=== PATIENT | female | born 1995 | race Two or more races ===

== ENCOUNTER 2025-02-15 22:25 | Emergency (ER) | payer OTHER, SELFPAY ==
[2025-02-15 22:25] VITALS: BMI 22.4
[2025-02-15 22:30] VITALS: BP 132/78; PULSE 75; RESP 18; TEMP 37.6; O2SAT 98
--- NOTE | 2025-02-15 22:39 | PD.EDVAGBL ---
ED OB Contraction Preg RMI/HPI General Chief complaint: OB/Uterine Contractions Stated complaint: problems 9 weeks. vaginal bleed Time Seen by Provider: 02/15/25 22:31 Arrival date/time: 02/15/25 22:25 RME / HPI RME / HPI Narrative: This section includes all my notes and documentations, including HPI, PE, and ED course. Sean Burgess MD HPI: 29-year-old female here with vaginal bleeding with clots since yesterday. She is currently . Based on LMP 12/10/2024, GA today is 9 4/7 weeks. Cramping has resolved. No other complaints. ROS: All negative except as documented in HPI. Physical Exam: General: Alert and oriented. Eyes: Conjunctivae and lids clear. ENT: No nasal congestion. Neck: Supple. Abdomen: Soft with no tenderness. Normal bowel sounds. No distension. No rebound or guarding. Back: No CVA tenderness. Skin: Warm and dry. Neuro: Alert and oriented X 3. I reviewed all diagnostic test results. My review of the OB ultrasound report is no IUP. Blood tests and urine tests unremarkable. At this point, diagnoses include complete miscarriage. Recommended supportive care. Based on my best medical judgment, made decision no further evaluation or treatment indicated at this time. Patient understands and agrees to the discharge instructions customized and printed, see below. Discharge Instructions from Dr. Burgess printed for you: 1. We are extremely sorry but you had a miscarriage. There is nothing in your uterus. 2. See a private doctor on 02/18/2025 for recheck and further care. Ask to review all test results and official radiology reports, to make sure you receive all necessary follow-ups and monitoring. 3. Seek immediate medical care with intolerable pain, severely heavy vaginal bleeding (soaking more than 3 pads per hour), or with any concerns. Sean Burgess MD Related Data Home Medications ?Medication ?Instructions ?Recorded ?Confirmed [id number] 1 mg 1 tab PO QDAY 02/18/21 04/15/22 tablet Allergies Allergy/AdvReac Type Severity Reaction Status Date / Time No Known Allergies Allergy Verified 04/15/22 12:34 Course Quality Measures none Orders Category Date Time Status US OB <= 14 weeks fetus Stat Exams 02/15/25 22:41 Completed Beta HCG,Quantitative Stat Lab 02/15/25 23:23 Completed CBC Stat Lab 02/15/25 23:23 Completed CMP [Comprehensive Metabolic Panel] Stat Lab 02/15/25 23:23 Completed HCG Qualitative,Urine Stat Lab 02/15/25 22:45 Completed Magnesium Stat Lab 02/15/25 23:23 Completed UA, C/S IF [Urinalysis, C/S if Indicated] Stat Lab 02/15/25 22:45 Completed Urine Culture Stat Lab 02/15/25 22:45 Received Vital Signs Vital signs: Vital Signs Temperature 99.6 F 02/15/25 22:30 Pulse Rate 75 02/15/25 22:30 Respiratory Rate 18 02/15/25 22:30 Blood Pressure 132/78 H 02/15/25 22:30 Pulse Oximetry (%) 98 02/15/25 22:30 Vaginal Bleeding Patient data External records reviewed:: [facility] previous records Clinical information provided by:: patient and spouse Social determinants that could affect healthcare access:: none Patient has the following chronic illnesses:: None How is presenting disease/condition affected by chronic disease/condition?: no chronic disease Evaluation data The following diagnostics were reviewed and interpreted by me:: lab results and radiology exam(s) Lab and/or radiology exams considered but not ordered:: None Interpretation Summary: Normal diagnostics Medications / Prescriptions Medications or Prescriptions considered but not ordered:: None Medication administrations:: None Consultations Consultation(s) initiated? (list below): No Diagnosis Vaginal Bleeding Differential Diagnosis: missed , threatened , dysfunctional uterine bleeding, menometrorrhagia, incomplete , ectopic without intrauterine , vaginal bleeding and other (Complete miscarriage) Most likely diagnosis given after review of the tests above:: Complete miscarriage Admission Indicated Admission indicated?: not indicated Explain why admission is indicated or not indicated:: There was no indication for admission. Admission Request Was there a request for admission?: No Disposition Plan Disposition Plan: Discharge Discharge Attestation Discharge Attestation: The patient and all family members were given an opportunity to ask questions and understood the discharge instructions. Discharge instructions specifically effects, indications for sooner follow up or return to the emergency department, and the expected course of current diagnosis. Patient condition: Stable Discharge Plan Plan Patient Disposition: HOME (Self Care) Prescriptions/Referrals Prescriptions/Med Rec: No Action [id number] 1 mg Tablet 1 tab PO QDAY Referrals: North Armstrong MD [Primary Care Provider] - In 1 week Problem List Clinical Impression: Miscarriage Patient/Caregiver Discharge Instructions Discharge Activity: activity as tolerated Education Materials: ED MISCARRIAGE Completed Additional Instructions: Discharge Instructions from Dr. Burgess printed for you: 1. We are extremely sorry but you had a miscarriage. There is nothing in your uterus. 2. See a private doctor on 02/18/2025 for recheck and further care. Ask to review all test results and official radiology reports, to make sure you receive all necessary follow-ups and monitoring. 3. Seek immediate medical care with intolerable pain, severely heavy vaginal bleeding (soaking more than 3 pads per hour), or with any concerns. Print Language: Maori Stand Alone Forms: Jacquie Award Info., Patient Portal Info Letter
--- NOTE | 2025-02-15 22:41 | XR_ITS ---
Examination: Complete OB ultrasound, less than 14 weeks, transabdominal Date and time of exam: February 15, 2025 10:50 PM INDICATIONS: Heavy vaginal bleeding beginning 5 hours ago Technique: Obstetrical ultrasound images less than 14 weeks performed via transabdominal imaging Findings: Uterus 8.3 cm endometrial stripe 0.4 cm No uterine mass or intrauterine gestation Right ovary 3.0 cm arterial flow Left ovary 3.5 cm arterial flow IMPRESSION: No uterine mass or retained products of conception
[2025-02-15 22:54] LABS: Collection Type, Urine Clean Catch; Squamous Epithelial Cell,Urine 0 /hpf (0-5)
[2025-02-15 23:25] LABS: Bilirubin,Urine Negative (Negative); Blood,Urine 3+ (Negative); Color,Urine Red (Lt Yel-Yel); Glucose, Urine Negative (Negative); Ketones,Urine Negative (Negative); Leukocyte Esterase,Urine Positive (Negative); Nitrite,Urine Negative (Negative); Protein,Urine 2+ (Neg - Trace); Specific Gravity,Urine 1.021 (1.001-1.035); Urobilinogen,Urine Negative mg/dL (0.0-1.0)
[2025-02-15 23:27] LABS: Clarity,Urine Turbid (Clear/Hazy)
[2025-02-15 23:44] LABS: Culture Indicated,Urine Yes; HCG Qualitative,Urine Positive; RBC,Urine 8508 /hpf (0-3); WBC,Urine 699 /hpf (0-5)
[2025-02-15 23:47] LABS: Basophils # (Auto) 0.1 Thou/mm3 (0.0-0.2); Basophils % (Auto) 1 % (0-2.5); Eosinophils # (Auto) 0.1 Thou/mm3 (0.0-0.5); Eosinophils % (Auto) 1 % (0-10); Hematocrit 39.4 % (36.0-46.0); Hemoglobin 13.7 g/dL (12.0-16.0); Immature Granulocytes % (Auto) 0 % (0-0); Immature Granulocytes Auto 0.02 Thou/mm3 (0.00-0.00); Lymphocytes # (Auto) 2.4 Thou/mm3 (1.0-4.8); Lymphocytes % (Auto) 18 % (10-50); Mean Corpuscular HGB Conc 34.8 g/dl (31.0-37.0); Mean Corpuscular Hemoglobin 29.7 pg (25.0-35.0); Mean Corpuscular Volume 86 fL (80-100); Monocytes # (Auto) 0.7 Thou/mm3 (0.0-0.8); Monocytes % (Auto) 5 % (0-12); Neutrophils # (Auto) 9.8 Thou/mm3 (1.8-7.7); Neutrophils % (Auto) 75 % (37-80); Nucleated Red Blood Cell % 0 /100 WBC (0); Platelet Count 268 Thou/mm3 (140-440); RDW Standard Deviation 38.5 fL (36.4-46.3); Red Blood Count 4.61 Miln/mm3 (4.00-5.20); White Blood Count 13.1 Thou/mm3 (3.6-11.0)
[2025-02-16 00:21] LABS: Alanine Aminotransferase 25 U/L (10-49); Albumin, Serum 4.8 gm/dL (3.5-5.0); Albumin/Globulin Ratio 1.7 (1.2-2.2); Alkaline Phosphatase 61 U/L (46-116); Anion Gap 10 (7-16); Aspartate Amino Transferase 26 U/L (0-34); BUN/Creatinine Ratio 13 Ratio (12-20); Bilirubin,Total 0.4 mg/dL (0.3-1.2); Blood Urea Nitrogen 9 mg/dL (9-23); Calcium 10.3 mg/dL (8.3-10.6); Calcium (Corrected) 10.3 mg/dL (8.5-10.1); Carbon Dioxide 26.3 mMol/L (20.0-31.0); Chloride 106 mMol/L (98-107); Creatinine (Component) 0.7 mg/dL (0.6-1.3); Estimated Creatinine Clearance 98.1 mL/min (>60); Globulin 2.8 gm/dL (2.3-3.5); Glucose 109 mg/dL (74-106); Magnesium 1.9 mg/dL (1.6-2.6); Osmolality,Calculated 282 (275-295); Sodium 142 mMol/L (136-145); Total Protein 7.6 gm/dL (5.7-8.2); eGFR > 60 See Note
[2025-02-16 00:30] LABS: Beta HCG,Quantitative 2880 mIU/mL (<5.0)
== END 2025-02-16 00:37 | disposition home or self-care (01) ==
PROVIDERS: Emergency Provider Emergency Medicine; PCP Internal Medicine
DX: O03.9 Complete or unspecified spontaneous abortion without complication (principal)
CPT/HCPCS: 36415; 76801; 80053; 81001; 81025; 83735; 84702; 85025; 87086; 99284